=== PATIENT | male | born 1990 | race Caucasian/White ===

== ENCOUNTER 2022-06-27 02:40 | Emergency (ER) | payer OTHER ==
[~2022-06-27] VITALS: Ht 182.8 cm; Wt 108.4 kg
[~2022-06-27 02:40] MED LIST: AMLODIPINE BES10 MG PO; EPI EZ PEN1 MG/ML IM; MEDROL DOSEPAK4 MG PO; NAPROSYN500 MG PO
[2022-06-27 03:01] LABS: BASO # 0.1 10*3/uL (0.0-0.1); BASO % 0.7 % (0.0-1.0); EOS # 0.2 10*3/uL (0.0-0.4); EOS % 1.7 % (1.0-4.0); HEMATOCRIT 50.9 % (42.0-52.0); LYMPH # 3.2 10*3/uL (1.3-4.4); LYMPH % 34.6 % (27.0-41.0); MEAN CELL VOLUME 85.1 fl (80.0-94.0); MEAN CORPUSCULAR HGB 29.3 pg (27.0-31.0); MEAN CORPUSCULAR HGB CONC 34.4 g/dl (33.0-37.0); MEAN PLATELET VOLUME 8.7 fl (9.6-12.3); MONO # 0.5 10*3/uL (0.1-1.0); MONO % 5.4 % (3.0-9.0); NEUT # 5.3 10*3/uL (2.3-7.9); NEUT % 56.9 % (47.0-73.0); PLATELET COUNT AUTOMATED 360 10*3/uL (130-400); RED BLOOD COUNT 5.98 10*6/uL (4.50-5.90); RED CELL DISTRI WIDTH 13.1 % (0-14.5); WHITE BLOOD COUNT 9.4 10*3/uL (4.8-10.8)
[2022-06-27 03:41] LABS: ALKALINE PHOSPHATASE 62 U/L (46-116); BUN 6 mg/dl (9-23); CHLORIDE 103 mmol/L (98-107); ETHYL ALCOHOL 190.4 mg/dl (<3); POTASSIUM 3.2 mmol/L (3.4-5.1); SGPT/ALT 40 U/L (10-49); SODIUM 139 mmol/L (136-145); TOTAL PROTEIN 7.2 gm/dL (6.0-8.0)
== END 2022-06-27 04:25 | disposition home or self-care (01) ==
LOC: ED 02:40
PROVIDERS: Internal Medicine
DX: R55 Syncope and collapse (principal)